=== PATIENT | male | born 1935 | race Two or more races ===

== ENCOUNTER 2016-07-26 12:58 | Inpatient (IN) | payer OTHER, BC ==
[~2016-07-26] VITALS: Ht 185.4 cm; Wt 74.4 kg
[~2016-07-26 12:58] MED LIST: ADULT LOW DOSE81 M1 PO; ALER-CAP25 M2; ASACOL400 MG PO; ASPIR 8181 M1 PO; ASPIRIN E.C.81 M1 PO; ASPIRIN81 M1; ASPIRIN81 M1 PO; ATARAX10 MG PO; ATIVAN0.25 MG; ATIVAN0.25 MG PO; ATIVAN0.5 MG; ATIVAN0.5 MG PO; ATORVASTATIN CA40 MG PO; ATROVENT 00.5 MG/2.5 IH; AZITHROMYCIN500 M1 PO; Advair 250/50 Diskus IH; Advair HFA 115/21 IH; Atarax PO; Ativan PO; BENTYL20 MG PO; BUSPAR15 MG; BUSPAR15 MG PO; BUSPAR5 M1 PO; BUSPIRONE HCL15 MG PO; Buspar PO; CARDIZEM CD,CA180 MG PO; CARDIZEM CD180 MG PO; CARTIA XT180 MG; CELEBREX200 MG PO; CELEXA PO; CELEXA10 MG PO; CENTRAL VITE F1 EACH PO; CENTRUM COMPLE1 EACH PO; CENTRUM SILV1 TABLE1 PO; CENTRUM SILV1 TABLET PO; CENTRUM SILVER1 EAC3 PO; CENTRUM SILVER1 EACH; CENTRUM SILVER1 EACH PO; CITALOPRAM HBR10 M1 PO; CLEARLAX510 GM PO; COLACE100 MG PO; COMPAZINE10 MG PO; COREG3.125 M1 PO; COUMADIN,JANTO7.5 MG PO; COUMADIN,JANTOVE1 MG; COUMADIN,JANTOVE5 MG PO; COUMADIN1 MG PO; COUMADIN2 MG PO; COUMADIN3 MG PO; COUMADIN5 MG PO; COUMADIN6 MG PO; CRESTOR40 MG; CRESTOR40 MG PO; Cardizem PO; Coumadin,Jantoven PO; Crestor PO; DESYREL 150 MG150 MG PO; DEXAMETHASONE4 MG PO; DEXAMETHASONE6 MG PO; DIGOX250 MCG PO; DIGOXIN250 MCG; DILAUDID2 MG PO; DOCUSATE SODIU100 MG PO; DONEPEZIL HCL10 MG PO; DULERA 100 MCG/13 GM IH; DURAGESIC25 MCG TD; Desyrel PO; Dexamethasone PO; EFFEXOR XR150 MG; EFFEXOR XR150 MG PO; EFFEXOR75 MG PO; Ecotrin PO; Effexor PO; Effexor XR PO; FIORICET 50-301 EACH PO; FIORICET,ESG1 TABLET PO; FLOMAX0.4 M1; FLOMAX0.4 M1 PO; FLOMAX0.4 MG PO; FOLIC ACID1 MG PO; FUROSEMIDE20 MG PO; FUROSEMIDE40 MG PO; Feosol PO; Flexeril PO; Flomax PO; Folvite PO; HYDROXYZINE HCL10 M1 PO; HYDROXYZINE HCL10 MG; HYDROXYZINE HCL10 MG PO; Habitrol,Nicoderm CQ TD; IRON PO; IRON18 MG PO; IRON325 M1 PO; IRON325 MG; IRON325 MG PO; KAPIDEX30 MG; KAPIDEX60 MG PO; LASIX40 MG PO; LIDOCAINE700 MG TD; LIDODERM 5% P1 PATCH TP; LISINOPRIL10 MG PO; LISINOPRIL5 MG PO; LOPRESSOR25 MG PO; LOPRESSOR50 MG PO; LORAZEPAM0.5 MG; LORAZEPAM0.5 MG PO; LOVENOX80 MG/0.8 SC; LYRICA150 MG PO; Lanoxin,Digitek PO; Lopressor PO; MATZIM LA PO; MATZIM LA180 MG PO; MELATONIN3 MG PO; MELOXICAM15 MG PO; MELOXICAM7.5 MG; METOPROLOL TART50 MG PO; METRONIDAZOLE500 MG PO; MIDRIN1 CAPSULE; MIDRIN1 CAPSULE PO; MORPHINE CON20 MG/M1 PO; MORPHINE SULFAT15 M3; MS Contin,Oramorph S PO; MSIR15 MG PO; MULTIVITAMIN1 EAC1 PO; Miralax, Glycolax PO; NAMENDA10 MG PO; OMEPRAZOLE20 M3; OMEPRAZOLE20 M3 PO; OMEPRAZOLE20 MG PO; OMNICEF300 MG PO; OXYCODONE-APAP1 EACH PO; OXYCONTIN10 MG; OXYCONTIN10 MG PO; OXYCONTIN15 MG PO; OXYCONTIN20 MG; OXYCONTIN20 MG PO; OxyCONTIN PO; PAIN RELIEF EX500 MG PO; PANTOPRAZOLE SO20 MG PO; PERCOCET 10/1 TABLET PO; POTASSIUM CHLO10 ME4 PO; PRADAXA150 MG; PRADAXA150 MG PO; PRILOSEC20 MG PO; PRINIVIL20 MG PO; PROAIR HFA8.5 GM IH; PROVENTIL,2.5 MG/3 M IH; Percocet 5/325,Endoc PO; Pradaxa PO; PriLOSEC PO; Protonix PO; RANITIDINE HCL150 M1 PO; Ranitidine HCl PO; SENOKOT S,PE1 TABLET PO; SERTRALINE HCL100 MG PO; SINEMET 10-1001 EACH PO; SPIRIVA1 INHALATI IH; SYMBICORT60 INHALA1 IH; SYMBICORT60 INHALAT IH; TAMSULOSIN HCL0.4 MG PO; TAZTIA XT180 M1 PO; TERBINAFINE HC250 M1 PO; TOPAMAX100 MG PO; TOPAMAX25 MG PO; TOPAMAX50 MG PO; TOPIRAGEN50 MG PO; TOPIRAMATE100 MG PO; TOPIRAMATE50 MG PO; TOPROL XL50 MG PO; TRAZODONE HCL150 MG PO; TRAZODONE HCL50 MG PO; TYLENOL WITH C1 EACH PO; Topamax PO; Tylenol Regular Stre PO; VANCOMYCIN1 GM/150 M IV; VENLAFAXINE HC150 M1; VENLAFAXINE HC150 M1 PO; VENLAFAXINE HCL50 MG PO; VICODIN 5-3001 EACH PO; VICODIN PO; VITAMIN D2000 UNIT PO; VITAMIN D35000 UNIT PO; VITAMIN D5000 UNIT PO; Vibramycin, Doryx PO; Vicodin,Lortab 5/500 PO; Vitamin D PO; WARFARIN SODIU7.5 MG PO; WARFARIN SODIUM1 MG PO; WARFARIN SODIUM5 MG PO; WARFARIN SODIUM6 MG PO; ZANAFLEX2 MG PO; ZOFRAN4 MG PO; Zithromax PO; Zofran IV; [UNRECOGNIZED DRUG - CODE]; celeXA PO
[2016-07-26 14:07] LABS: EOSINOPHIL (%) 0.1 % (0-5); HEMATOCRIT 40.7 % (38.0-50.0); IMMATURE GRANULOCYTE (%) 0.5 % (0.0-0.7); INSTRUMENT ABS NEUTROPHIL CT 5.4 K/uL; LYMPHOCYTE COUNT 2.5 K/uL (1.0-2.8); MCH 29.2 PG (29.0-34.0); MCHC 31.7 G/DL (30.0-36.0); MCV 92.1 FL (86-99); MEAN PLAT.VOLUME 10.2 uM^3 (9.0-12.4); MONOCYTE (%) 8.5 % (3-12); MONOCYTE COUNT 0.7 K/uL (0-0.8); NEUTROPHIL (%) 61.9 % (45-76); NEUTROPHIL COUNT 5.4 K/uL (1.8-6.4); PLATELET COUNT 208 K/uL (156-360); RBC DIS.WIDTH-CV 14.7 % (11.8-14.6); RBC DIS.WIDTH-SD 50.3 % (39-53); RED BLOOD COUNT 4.42 M/uL (4.00-5.50); WHITE BLOOD COUNT 8.7 K/uL (4.1-10.2)
[2016-07-26 14:17] LABS: CHLORIDE 107 mEq/L (99-109); INTER. NORMALIZED RATIO 2.2; POTASSIUM 4.3 mEq/L (3.7-5.4); SODIUM 139 mEq/L (136-147)
[2016-07-26 14:18] LABS: PROTHROMBIN TIME 23.4 (9.2-11.2)
[2016-07-26 14:19] LABS: GLUCOSE 93 mg/dL (70-99)
[2016-07-26 14:20] LABS: ANION GAP 8 MEQ/L (2-14)
[2016-07-26 14:22] LABS: GFR ESTIMATE (CALCULATED) > 59 mL/min/
[2016-07-26 14:23] LABS: UREA NITROGEN (BUN) 14 mg/dL (9-23)
[2016-07-26] MEDS ORDERED: PULMICORT FLE180 MCG IH (17:39)
[2016-07-26] MEDS ORDERED: BUTALB-ACETAMI1 EAC2 PO (17:41)
[2016-07-26] MEDS ORDERED: CYMBALTA30 MG PO (17:42)
[2016-07-26] MEDS ORDERED: DURAGESIC12 MCG TD (17:44)
[2016-07-26] MEDS ORDERED: LORAZEPAM0.5 MG PO (17:45)
[2016-07-26] MEDS ORDERED: MELATONIN PO (17:48)
[2016-07-26] MEDS ORDERED: PERCOCET 10/1 TABLET PO (17:52)
[2016-07-26] MEDS ORDERED: SEROQUEL12.5 MG PO (17:54)
[2016-07-26] MEDS ORDERED: TOPAMAX100 MG PO (17:57)
[2016-07-26] MEDS ORDERED: COUMADIN4 MG PO (17:58)
[2016-07-26] MEDS ORDERED: COUMADIN1 MG PO (17:59)
[2016-07-26] MEDS ORDERED: VITRON-C TABLE1 EACH PO (17:59)
[2016-07-26] MEDS ORDERED: STOOL SOFTENER100 MG PO (18:00)
[2016-07-26] MEDS ORDERED: DILAUDID8 MG PO (18:01)
[2016-07-26] MEDS ORDERED: DAILY VITE1 EAC1 PO (18:01)
[2016-07-26] MEDS ORDERED: VITAMIN D35000 UNIT PO (18:01)
[2016-07-26] MEDS ORDERED: KENALOG,ARISTOC80 GM TP (18:03)
[2016-07-26 20:37] VITALS: BP 138/82
[2016-07-26 23:07] LABS: METH RESISTANT S AUREUS PCR NEGATIVE (NEGATIVE)
[2016-07-26 23:08] LABS: PROBE CHECK PASS; SPECIMEN PROCESSING CONTROL PASS
[2016-07-27 00:03] VITALS: BP 125/63
[2016-07-27 07:36] LABS: INTER. NORMALIZED RATIO 2.1; PROTHROMBIN TIME 22.3 (9.2-11.2)
[2016-07-27 09:13] VITALS: BP 145/70
[2016-07-27 12:00] VITALS: BP 139/65
[2016-07-27 16:00] VITALS: BP 120/64
[2016-07-27 19:15] VITALS: BP 132/77
[2016-07-27 23:25] VITALS: BP 138/69
[2016-07-28 04:02] VITALS: BP 148/77
[2016-07-28 07:43] VITALS: BP 154/82
[2016-07-28 09:32] LABS: HEMATOCRIT 39.7 % (38.0-50.0); MCH 28.9 PG (29.0-34.0); MCHC 31.5 G/DL (30.0-36.0); MCV 91.9 FL (86-99); MEAN PLAT.VOLUME 9.8 uM^3 (9.0-12.4); PLATELET COUNT 165 K/uL (156-360); RBC DIS.WIDTH-CV 14.7 % (11.8-14.6); RBC DIS.WIDTH-SD 50.4 % (39-53); RED BLOOD COUNT 4.32 M/uL (4.00-5.50)
[2016-07-28 09:58] LABS: ANION GAP 8 MEQ/L (2-14); CHLORIDE 104 MEQ/L (99-109); GFR ESTIMATE (CALCULATED) > 59 mL/min/; GLUCOSE 113 mg/dL (70-99); POTASSIUM 4.1 MEQ/L (3.7-5.4); SAMPLE HEMOLYSIS CHECK 0; SAMPLE ICTERIC CHECK 0; SAMPLE LIPEMIA CHECK 0; SODIUM 137 MEQ/L (136-147); UREA NITROGEN (BUN) 15 mg/dL (9-23)
[2016-07-28 11:04] LABS: INTER. NORMALIZED RATIO 1.6; PROTHROMBIN TIME 16.8 (9.2-11.2)
[2016-07-28 12:11] VITALS: BP 163/78
[2016-07-28 12:16] LABS: ADD MIUA? YES; BILIRUBIN NEGATIVE; BLOOD SMALL; COLOR YELLOW ((YELLOW)); GLUCOSE (STRIP) NEGATIVE; KETONES NEGATIVE; LEUKOCYTES NEGATIVE; NITRITE NEGATIVE; PROTEIN (STRIP) NEGATIVE; SPECIFIC GRAVITY 1.012 (1.000-1.030); UROBILINOGEN 0.2 MG/DL (0.2-1.0)
[2016-07-28 12:40] LABS: BACTERIA 1+ /HPF; EPITHELIAL CELLS NONE SEEN /HPF; MUCUS NONE SEEN /LPF; RED BLOOD CELLS 0-5 /HPF (0-5); UCUL ADDED? NO; WHITE BLOOD CELLS NONE SEEN /HPF (0-5)
[2016-07-28 15:04] VITALS: BP 143/78
[2016-07-28 20:00] VITALS: BP 143/84
[2016-07-28 23:20] VITALS: BP 147/65
[2016-07-29 04:35] VITALS: BP 132/65
[2016-07-29 05:49] LABS: INTER. NORMALIZED RATIO 1.3
[2016-07-29 08:10] VITALS: BP 140/78
[2016-07-29 12:25] VITALS: BP 136/63
[2016-07-29 16:24] VITALS: BP 127/66
[2016-07-29 23:46] VITALS: BP 126/70
[2016-07-30 03:34] VITALS: BP 137/70
[2016-07-30 05:19] LABS: INTER. NORMALIZED RATIO 1.2; PROTHROMBIN TIME 11.9 (9.2-11.2)
[2016-07-30 07:33] VITALS: BP 127/70
[2016-07-30] MEDS ORDERED: NICOTINE PATCH1 EAC2 TD (09:53)
[2016-07-30 11:36] VITALS: BP 137/68
[2016-07-30 15:38] VITALS: BP 119/61
[2016-07-30 20:04] VITALS: BP 151/73
[2016-07-31 02:40] VITALS: BP 132/78
[2016-07-31 05:40] LABS: INTER. NORMALIZED RATIO 1.1; PROTHROMBIN TIME 11.5 (9.2-11.2)
[2016-07-31 07:54] VITALS: BP 125/74
[2016-07-31 11:56] VITALS: BP 112/57
[2016-07-31] MEDS ORDERED: DURAGESIC25 MCG TD (13:51)
[2016-07-31] MEDS ORDERED: DILAUDID8 MG PO (13:51)
[2016-07-31] MEDS ORDERED: LORAZEPAM0.5 MG PO (13:51)
[2016-07-31] MEDS ORDERED: PERCOCET 10/1 TABLET PO (13:51)
[2016-07-31] MEDS ORDERED: BUTALB-ACETAMI1 EAC2 PO (15:06)
== END 2016-07-31 16:09 | DRG 556 ==
LOC: EME → EDBD 12:58 → 5WEST 18:46 → EDOF 18:46 → 5WEST 20:12 → 3EAST 07-27 11:10
PROVIDERS: Emergency Medicine; Hospitalist; Physician Assistant; Physician Assistant Medical
DX: M25.551 Pain in right hip (principal); R26.2 Difficulty in walking, not elsewhere classified; I25.82 Chronic total occlusion of coronary artery; F11.20 Opioid dependence, uncomplicated; I48.0 Paroxysmal atrial fibrillation; J44.9 Chronic obstructive pulmonary disease, unspecified; G30.9 Alzheimer's disease, unspecified; F02.80 Dementia in other diseases classified elsewhere, unspecified severity, without behavioral disturbance, psychotic disturbance, mood disturbance, and anxiety; I25.10 Atherosclerotic heart disease of native coronary artery without angina pectoris; I10 Essential (primary) hypertension; E78.5 Hyperlipidemia, unspecified; K21.9 Gastro-esophageal reflux disease without esophagitis; G47.33 Obstructive sleep apnea (adult) (pediatric); F41.9 Anxiety disorder, unspecified; G89.29 Other chronic pain; Z51.5 Encounter for palliative care; Z66 Do not resuscitate; F17.210 Nicotine dependence, cigarettes, uncomplicated; Z96.643 Presence of artificial hip joint, bilateral; Z91.81 History of falling; Z91.19 Patient's noncompliance with other medical treatment and regimen; Z79.01 Long term (current) use of anticoagulants; Z95.1 Presence of aortocoronary bypass graft; Z85.46 Personal history of malignant neoplasm of prostate; Z85.828 Personal history of other malignant neoplasm of skin; Z85.118 Personal history of other malignant neoplasm of bronchus and lung; Z88.5 Allergy status to narcotic agent; Z86.14 Personal history of Methicillin resistant Staphylococcus aureus infection
CPT/HCPCS: 70450; 71020; 72131; 72192; 73502; 73552; 73560; 80048; 81003; 85025; 85027; 85610; 87641; 93005; 94640; 94640 76; 94799; 97530 GO; 97530 GP; 99281; 99285; G0378; G8978 GP CJ; G8979 GP CI; J2270

== ENCOUNTER 2016-10-17 12:09 | Observation (INO) | payer OTHER, BC ==
[~2016-10-17] VITALS: Ht 182.9 cm; Wt 72.0 kg
[~2016-10-17 12:09] MED LIST changes: +BUTALB-ACETAMI1 EAC2 PO; +COUMADIN4 MG PO; +CYMBALTA30 MG PO; +DAILY VITE1 EAC1 PO; +DILAUDID8 MG PO; +DURAGESIC12 MCG TD; +KENALOG,ARISTOC80 GM TP; +MELATONIN PO; +NICOTINE PATCH1 EAC2 TD; +PULMICORT FLE180 MCG IH; +SEROQUEL12.5 MG PO; +STOOL SOFTENER100 MG PO; +VITRON-C TABLE1 EACH PO
[2016-10-17 13:11] LABS: HEMATOCRIT 38.6 % (38.0-50.0); MCHC 31.9 G/DL (30.0-36.0); MCV 94.1 FL (86-99); MEAN PLAT.VOLUME 10.3 uM^3 (9.0-12.4); PLATELET COUNT 194 K/uL (156-360); RBC DIS.WIDTH-SD 48.6 % (39-53); WHITE BLOOD COUNT 8.4 K/uL (4.1-10.2)
[2016-10-17 13:20] LABS: CHLORIDE 108 mEq/L (99-109); POTASSIUM 4.2 mEq/L (3.7-5.4); SODIUM 141 mEq/L (136-147)
[2016-10-17 13:22] LABS: GLUCOSE 84 mg/dL (70-99)
[2016-10-17 13:23] LABS: ANION GAP 10 MEQ/L (2-14)
[2016-10-17 13:24] LABS: TOTAL BILIRUBIN 0.3 mg/dL (0.0-1.0)
[2016-10-17 13:26] LABS: ALKALINE PHOSPHATASE 87 IU/L (3-129); GFR ESTIMATE (CALCULATED) > 59 mL/min/
[2016-10-17 13:27] LABS: UREA NITROGEN (BUN) 13 mg/dL (9-23)
[2016-10-17 17:15] LABS: INTER. NORMALIZED RATIO 1.1; PROTHROMBIN TIME 11.6 SEC (10.2-12.9)
[2016-10-17 17:32] LABS: TROP-I INTERPRETATION NEGATIVE; TROPONIN-I < 0.01 ng/mL (0.0-0.30)
[2016-10-17 18:54] VITALS: BP 130/87
[2016-10-17 21:53] LABS: TROP-I INTERPRETATION NEGATIVE; TROPONIN-I 0.03 ng/mL (0.0-0.30)
[2016-10-17 22:37] VITALS: BP 160/60
[2016-10-17 22:57] LABS: ADD MIUA? NO; BILIRUBIN NEGATIVE; BLOOD NEGATIVE; COLOR YELLOW ((YELLOW)); GLUCOSE (STRIP) NEGATIVE; KETONES NEGATIVE; LEUKOCYTES NEGATIVE; NITRITE NEGATIVE; PROTEIN (STRIP) NEGATIVE; SPECIFIC GRAVITY 1.045 (1.000-1.030); UCUL ADDED? NO; UROBILINOGEN 0.2 MG/DL (0.2-1.0)
[2016-10-17 23:28] LABS: TROP-I INTERPRETATION NEGATIVE; TROPONIN-I 0.01 ng/mL (0.0-0.30)
[2016-10-17 23:40] VITALS: BP 151/63
[2016-10-18 03:25] VITALS: BP 157/89
[2016-10-18 07:10] LABS: INTER. NORMALIZED RATIO 1.1; PROTHROMBIN TIME 11.8 SEC (10.2-12.9)
[2016-10-18 07:25] LABS: HDL CHOLESTEROL 62 MG/DL (Desirable>=40); LDL CHOLESTEROL 65 mg/dL (Desirable<100); NON-HDL CHOLESTEROL 88 mg/dL (Desirable<160); TOTAL CHOLESTEROL 150 mg/dL (Desirable<200); TRIGLYCERIDES 115 MG/DL (Normal: <150)
[2016-10-18 07:26] LABS: TROP-I INTERPRETATION NEGATIVE; TROPONIN-I 0.03 ng/mL (0.0-0.30)
[2016-10-18 07:35] VITALS: BP 190/82
[2016-10-18 11:06] VITALS: BP 174/78
[2016-10-18] MEDS ORDERED: AUGMENTIN875 MG PO (13:28)
== END 2016-10-18 14:40 | disposition home or self-care (01) ==
LOC: EME 12:09 → 5SOUTH 15:27 → EDOF 15:27 → 5SOUTH 18:42
PROVIDERS: Emergency Medicine; Hospitalist; Internal Medicine
DX: G45.9 Transient cerebral ischemic attack, unspecified (principal); R47.81 Slurred speech; J18.9 Pneumonia, unspecified organism; F17.200 Nicotine dependence, unspecified, uncomplicated; J44.9 Chronic obstructive pulmonary disease, unspecified; E78.5 Hyperlipidemia, unspecified; I10 Essential (primary) hypertension; G43.909 Migraine, unspecified, not intractable, without status migrainosus; K21.9 Gastro-esophageal reflux disease without esophagitis; Z95.1 Presence of aortocoronary bypass graft; F32.9 Major depressive disorder, single episode, unspecified; I25.10 Atherosclerotic heart disease of native coronary artery without angina pectoris; I48.91 Unspecified atrial fibrillation; I73.9 Peripheral vascular disease, unspecified; G47.33 Obstructive sleep apnea (adult) (pediatric); Z96.643 Presence of artificial hip joint, bilateral
CPT/HCPCS: 70450; 71010; 71275; 80053; 80061; 81003; 84484; 85027; 85610; 87040; 93005; 94799; 99281; 99285; G0378; J0456; J0696; J7050

== ENCOUNTER 2016-10-23 18:34 | Inpatient (IN) | payer OTHER, BC ==
[~2016-10-23] VITALS: Ht 182.9 cm; Wt 75.9 kg
[~2016-10-23 18:34] MED LIST changes: +AUGMENTIN875 MG PO
[2016-10-23 20:16] LABS: BASOPHIL COUNT 0.1 K/uL (0-0.1); EOSINOPHIL (%) 0.4 % (0-5); HEMATOCRIT 37.9 % (38.0-50.0); IMMATURE GRANULOCYTE (%) 0.5 % (0.0-0.7); IMMATURE GRANULOCYTE COUNT 0.1 K/uL; LYMPHOCYTE COUNT 3.8 K/uL (1.0-2.8); MCH 29.9 PG (29.0-34.0); MCHC 31.7 G/DL (30.0-36.0); MCV 94.3 FL (86-99); MEAN PLAT.VOLUME 10.5 uM^3 (9.0-12.4); MONOCYTE (%) 6.8 % (3-12); MONOCYTE COUNT 0.7 K/uL (0-0.8); NEUTROPHIL (%) 56.2 % (45-76); PLATELET COUNT 225 K/uL (156-360); RBC DIS.WIDTH-SD 48.8 % (39-53); RED BLOOD COUNT 4.02 M/uL (4.00-5.50); WHITE BLOOD COUNT 10.7 K/uL (4.1-10.2)
[2016-10-23 20:26] LABS: CHLORIDE 103 mEq/L (99-109); SODIUM 138 mEq/L (136-147)
[2016-10-23 20:28] LABS: GLUCOSE 83 mg/dL (70-99)
[2016-10-23 20:29] LABS: ANION GAP 11 MEQ/L (2-14)
[2016-10-23 20:32] LABS: ALKALINE PHOSPHATASE 106 IU/L (3-129); GFR ESTIMATE (CALCULATED) > 59 mL/min/; TOTAL BILIRUBIN 0.5 mg/dL (0.0-1.0)
[2016-10-23 20:33] LABS: UREA NITROGEN (BUN) 17 mg/dL (9-23)
[2016-10-23 20:35] LABS: CREATINE KINASE 468 IU/L (1-294); TOTAL CK 468 IU/L (1-294)
[2016-10-23 20:41] LABS: CK-MB 8.5 ng/mL (0.0-4.9)
[2016-10-23 20:42] LABS: TROP-I INTERPRETATION NEGATIVE; TROPONIN-I 0.01 ng/mL (0.0-0.30)
[2016-10-23 20:54] LABS: ADD MIUA? NO; BILIRUBIN NEGATIVE; BLOOD NEGATIVE; COLOR YELLOW ((YELLOW)); GLUCOSE (STRIP) NEGATIVE; KETONES NEGATIVE; LEUKOCYTES NEGATIVE; NITRITE NEGATIVE; PROTEIN (STRIP) NEGATIVE; SPECIFIC GRAVITY 1.016 (1.000-1.030); UCUL ADDED? NO; UROBILINOGEN 0.2 MG/DL (0.2-1.0)
[2016-10-23] MEDS ORDERED: SINEMET 25-1001 EACH PO (23:21)
[2016-10-23] MEDS ORDERED: DURAGESIC12 MCG TD (23:24)
[2016-10-23] MEDS ORDERED: ATIVAN0.5 MG PO (23:25)
[2016-10-23] MEDS ORDERED: MELATONIN10 M1 PO (23:30)
[2016-10-23] MEDS ORDERED: MELATONIN1 MG PO (23:33)
[2016-10-23] MEDS ORDERED: ECONAZOLE NITRA15 GM TP (23:36)
[2016-10-23] MEDS ORDERED: GABAPENTIN100 MG PO (23:36)
[2016-10-23] MEDS ORDERED: LO-DOSE ASPIRIN81 M2 PO (23:37)
[2016-10-23] MEDS ORDERED: LOPRESSOR25 MG PO (23:37)
[2016-10-23] MEDS ORDERED: PROAIR HFA8.5 GM IH (23:37)
[2016-10-24] VITALS (7 sets, daily range): BP systolic 113–159; BP diastolic 50–72
[2016-10-25 03:47] VITALS: BP 114/60
[2016-10-25 06:18] LABS: ANION GAP 3 MEQ/L (2-14); CHLORIDE 109 MEQ/L (99-109); GFR ESTIMATE (CALCULATED) > 59 mL/min/; GLUCOSE 82 mg/dL (70-99); POTASSIUM 4.1 MEQ/L (3.7-5.4); SAMPLE HEMOLYSIS CHECK 0; SAMPLE ICTERIC CHECK 0; SAMPLE LIPEMIA CHECK 0; SODIUM 139 MEQ/L (136-147); UREA NITROGEN (BUN) 13 mg/dL (9-23)
[2016-10-25 06:29] LABS: HEMATOCRIT 31.3 % (38.0-50.0); MCH 29.7 PG (29.0-34.0); MCHC 31.6 G/DL (30.0-36.0); MEAN PLAT.VOLUME 10.3 uM^3 (9.0-12.4); PLATELET COUNT 162 K/uL (156-360); RBC DIS.WIDTH-CV 13.8 % (11.8-14.6); RED BLOOD COUNT 3.33 M/uL (4.00-5.50); WHITE BLOOD COUNT 6.8 K/uL (4.1-10.2)
[2016-10-25 07:25] LABS: BASOPHIL COUNT 0.1 K/uL (0-0.1); EOSINOPHIL (%) 0.4 % (0-5); HEMATOLOGY COMMENT 1 SMEAR COMPATIBLE; IMMATURE GRANULOCYTE (%) 0.4 % (0.0-0.7); INSTRUMENT ABS NEUTROPHIL CT 3.2 K/uL; LYMPHOCYTE COUNT 2.7 K/uL (1.0-2.8); MONOCYTE (%) 12.4 % (3-12); MONOCYTE COUNT 0.9 K/uL (0-0.8); NEUTROPHIL (%) 46.9 % (45-76); NEUTROPHIL COUNT 3.2 K/uL (1.8-6.4)
[2016-10-25 07:49] VITALS: BP 149/64
[2016-10-25 11:07] VITALS: BP 144/78
[2016-10-25 15:26] VITALS: BP 148/74
[2016-10-25 19:39] VITALS: BP 172/77
[2016-10-25 23:54] VITALS: BP 135/62
[2016-10-26 04:23] VITALS: BP 126/60
[2016-10-26 07:27] VITALS: BP 146/72
[2016-10-26 11:08] VITALS: BP 130/59
[2016-10-26 15:13] VITALS: BP 132/63
[2016-10-26 19:24] VITALS: BP 134/51
[2016-10-27 00:02] VITALS: BP 172/76
[2016-10-27 04:43] VITALS: BP 144/81
[2016-10-27 06:34] LABS: HEMATOCRIT 34.1 % (38.0-50.0); MCH 29.8 PG (29.0-34.0); MCHC 31.7 G/DL (30.0-36.0); MCV 93.9 FL (86-99); MEAN PLAT.VOLUME 10.5 uM^3 (9.0-12.4); PLATELET COUNT 182 K/uL (156-360); RBC DIS.WIDTH-CV 13.6 % (11.8-14.6); RBC DIS.WIDTH-SD 46.8 % (39-53); RED BLOOD COUNT 3.63 M/uL (4.00-5.50); WHITE BLOOD COUNT 5.3 K/uL (4.1-10.2)
[2016-10-27 07:05] LABS: ANION GAP 7 MEQ/L (2-14); CHLORIDE 107 MEQ/L (99-109); GFR ESTIMATE (CALCULATED) > 59 mL/min/; GLUCOSE 94 mg/dL (70-99); POTASSIUM 4.5 MEQ/L (3.7-5.4); SAMPLE HEMOLYSIS CHECK 0; SAMPLE ICTERIC CHECK 0; SAMPLE LIPEMIA CHECK 0; SODIUM 140 MEQ/L (136-147); UREA NITROGEN (BUN) 10 mg/dL (9-23)
[2016-10-27 08:00] VITALS: BP 135/71
[2016-10-27] MEDS ORDERED: AUGMENTIN875 MG PO (11:32)
[2016-10-27 12:00] VITALS: BP 114/51
[2016-10-27] MEDS ORDERED: NORVASC5 MG PO (14:28)
== END 2016-10-27 14:41 | DRG 190 ==
LOC: EME 18:34 → EDOF 23:03 → 5SOUTH 23:03 → ENRESERV 23:11 → 5SOUTH 10-24 00:53
PROVIDERS: Emergency Medicine; Hospitalist; Internal Medicine
DX: J44.0 Chronic obstructive pulmonary disease with (acute) lower respiratory infection (principal); J15.4 Pneumonia due to other streptococci; L03.115 Cellulitis of right lower limb; I48.91 Unspecified atrial fibrillation; Z99.81 Dependence on supplemental oxygen; G30.1 Alzheimer's disease with late onset; L03.116 Cellulitis of left lower limb; F02.80 Dementia in other diseases classified elsewhere, unspecified severity, without behavioral disturbance, psychotic disturbance, mood disturbance, and anxiety; F17.200 Nicotine dependence, unspecified, uncomplicated; E78.5 Hyperlipidemia, unspecified; G47.33 Obstructive sleep apnea (adult) (pediatric); I10 Essential (primary) hypertension; I25.10 Atherosclerotic heart disease of native coronary artery without angina pectoris; J98.11 Atelectasis; K21.9 Gastro-esophageal reflux disease without esophagitis; Z87.442 Personal history of urinary calculi; R29.6 Repeated falls; Y95 Nosocomial condition; Z79.82 Long term (current) use of aspirin; Z79.899 Other long term (current) drug therapy; Z95.1 Presence of aortocoronary bypass graft; Z96.643 Presence of artificial hip joint, bilateral; R41.82 Altered mental status, unspecified; E86.0 Dehydration; I73.9 Peripheral vascular disease, unspecified
CPT/HCPCS: 70450; 71010; 71020; 74230; 80048; 80053; 80202; 81003; 82550; 82553; 83880; 84484; 85025; 85027; 87040; 92610 GN; 92611 GN; 93005; 94640; 94640 76; 94799; 97530 GO; 99281; 99285; J0692; J1644; J2543; J3370; J7030; J7050

== ENCOUNTER 2016-12-22 23:11 | Emergency (ER) | payer OTHER, BC ==
[~2016-12-22] VITALS: Ht 182.9 cm; Wt 72.9 kg
[~2016-12-22 23:11] MED LIST changes: +ECONAZOLE NITRA15 GM TP; +GABAPENTIN100 MG PO; +LO-DOSE ASPIRIN81 M2 PO; +MELATONIN1 MG PO; +MELATONIN10 M1 PO; +NORVASC5 MG PO; +SINEMET 25-1001 EACH PO
[2016-12-23 00:34] LABS: CHLORIDE 106 mEq/L (99-109); POTASSIUM 3.7 mEq/L (3.7-5.4); SODIUM 139 mEq/L (136-147)
[2016-12-23 00:35] LABS: HEMATOCRIT 33.6 % (38.0-50.0); MCHC 32.1 G/DL (30.0-36.0); MCV 90.3 FL (86-99); MEAN PLAT.VOLUME 10.3 uM^3 (9.0-12.4); PLATELET COUNT 249 K/uL (156-360); RBC DIS.WIDTH-CV 13.6 % (11.8-14.6); RBC DIS.WIDTH-SD 45.1 % (39-53); RED BLOOD COUNT 3.72 M/uL (4.00-5.50); WHITE BLOOD COUNT 10.8 K/uL (4.1-10.2)
[2016-12-23 00:36] LABS: GLUCOSE 114 mg/dL (70-99)
[2016-12-23 00:38] LABS: ANION GAP 11 MEQ/L (2-14)
[2016-12-23 00:40] LABS: GFR ESTIMATE (CALCULATED) > 59 mL/min/
[2016-12-23 00:41] LABS: UREA NITROGEN (BUN) 15 mg/dL (9-23)
[2016-12-23 00:46] LABS: TROP-I INTERPRETATION NEGATIVE; TROPONIN-I 0.16 ng/mL (0.0-0.30)
[2016-12-23 01:32] LABS: ADD MIUA? YES; BILIRUBIN NEGATIVE; BLOOD NEGATIVE; COLOR AMBER ((YELLOW)); GLUCOSE (STRIP) NEGATIVE; KETONES 5; LEUKOCYTES SMALL; NITRITE NEGATIVE; PROTEIN (STRIP) NEGATIVE; SPECIFIC GRAVITY 1.025 (1.000-1.030)
[2016-12-23 01:36] LABS: BACTERIA NONE SEEN /HPF; EPITHELIAL CELLS RARE /HPF; MUCUS 1+ /LPF; RED BLOOD CELLS 0-5 /HPF (0-5); UCUL ADDED? YES; WHITE BLOOD CELLS 40-50 /HPF (0-5); WHITE BLOOD CELLS CLUMP RARE /HPF (0-5)
[2016-12-23] MEDS ORDERED: CEFPODOXIME PR100 MG PO (01:52)
[2016-12-23 03:48] VITALS: BP 102/84
== END 2016-12-23 04:04 ==
LOC: EME 23:11
PROVIDERS: Emergency Medicine
DX: N39.0 Urinary tract infection, site not specified (principal); R07.81 Pleurodynia; W18.30XA Fall on same level, unspecified, initial encounter; I48.91 Unspecified atrial fibrillation; F03.90 Unspecified dementia, unspecified severity, without behavioral disturbance, psychotic disturbance, mood disturbance, and anxiety; I45.10 Unspecified right bundle-branch block; I10 Essential (primary) hypertension; E78.5 Hyperlipidemia, unspecified; J44.9 Chronic obstructive pulmonary disease, unspecified; Z95.1 Presence of aortocoronary bypass graft; Z85.46 Personal history of malignant neoplasm of prostate; Z85.828 Personal history of other malignant neoplasm of skin; Z85.118 Personal history of other malignant neoplasm of bronchus and lung; Z79.82 Long term (current) use of aspirin; F17.200 Nicotine dependence, unspecified, uncomplicated
CPT/HCPCS: 70450; 71020; 72125; 80048; 81003; 83605; 84484; 85027; 87077; 87086; 87186; 93005; 99281; 99285; J0696; J7030; J7050

== ENCOUNTER 2017-01-06 23:03 | Inpatient (IN) | payer OTHER, BC ==
[~2017-01-06] VITALS: Ht 175.3 cm; Wt 69.4 kg
[~2017-01-06 23:03] MED LIST changes: +CEFPODOXIME PR100 MG PO
[2017-01-06 23:54] LABS: HEMATOCRIT 36.9 % (38.0-50.0); MCH 28.7 PG (29.0-34.0); MCHC 31.7 G/DL (30.0-36.0); MCV 90.4 FL (86-99); MEAN PLAT.VOLUME 10.9 uM^3 (9.0-12.4); PLATELET COUNT 196 K/uL (156-360); RBC DIS.WIDTH-CV 14.8 % (11.8-14.6); RBC DIS.WIDTH-SD 49.3 % (39-53); RED BLOOD COUNT 4.08 M/uL (4.00-5.50); WHITE BLOOD COUNT 8.7 K/uL (4.1-10.2)
[2017-01-07 00:11] LABS: CHLORIDE 107 mEq/L (99-109); POTASSIUM 3.8 mEq/L (3.7-5.4); SODIUM 141 mEq/L (136-147)
[2017-01-07 00:13] LABS: GLUCOSE 110 mg/dL (70-99)
[2017-01-07 00:14] LABS: ANION GAP 10 MEQ/L (2-14)
[2017-01-07 00:17] LABS: GFR ESTIMATE (CALCULATED) > 59 mL/min/
[2017-01-07 00:18] LABS: UREA NITROGEN (BUN) 9 mg/dL (9-23)
[2017-01-07 00:20] LABS: TROP-I INTERPRETATION NEGATIVE; TROPONIN-I 0.03 ng/mL (0.0-0.30)
[2017-01-07 00:37] LABS: INTER. NORMALIZED RATIO 1.2; PROTHROMBIN TIME 12.7 SEC (10.2-12.9)
[2017-01-07 00:39] LABS: PTT 33.9 SEC (25-37)
[2017-01-07 06:38] VITALS: BP 169/108
[2017-01-07 08:20] VITALS: BP 148/89
[2017-01-07 11:21] VITALS: BP 121/78
[2017-01-07] MEDS ORDERED: MILK OF MAGN PO (13:21)
[2017-01-07] MEDS ORDERED: DULCOLAX10 MG PR (13:22)
[2017-01-07] MEDS ORDERED: FLEET MINERAL133 ML PR (13:22)
[2017-01-07] MEDS ORDERED: DUONEB 2.5-0.5 M3 ML AEROSOL (13:27)
[2017-01-07] MEDS ORDERED: TYLENOL REGULA325 MG PO (13:28)
[2017-01-07] MEDS ORDERED: PERCOCET 10/1 TABLET PO (13:29)
[2017-01-07] MEDS ORDERED: NICODERM CQ1 EACH TD (13:30)
[2017-01-07 19:59] VITALS: BP 154/89
[2017-01-07 23:02] LABS: METH RESISTANT S AUREUS PCR POSITIVE (NEGATIVE)
[2017-01-07 23:14] LABS: PROBE CHECK PASS
[2017-01-07 23:52] VITALS: BP 120/85
[2017-01-08 07:53] VITALS: BP 130/90
[2017-01-08 16:08] VITALS: BP 104/63
[2017-01-09 00:34] VITALS: BP 120/68
[2017-01-09 06:38] LABS: HEMATOCRIT 37.7 % (38.0-50.0); MCH 28.8 PG (29.0-34.0); MCV 93.5 FL (86-99); RED BLOOD COUNT 4.03 M/uL (4.00-5.50); WHITE BLOOD COUNT 6.7 K/uL (4.1-10.2)
[2017-01-09 06:39] LABS: BASOPHIL COUNT 0.1 K/uL (0-0.1); EOSINOPHIL (%) 0.2 % (0-5); IMMATURE GRANULOCYTE (%) 0.3 % (0.0-0.7); INSTRUMENT ABS NEUTROPHIL CT 2.8 K/uL; LYMPHOCYTE COUNT 2.8 K/uL (1.0-2.8); MCHC 30.8 G/DL (30.0-36.0); MEAN PLAT.VOLUME 11.3 uM^3 (9.0-12.4); MONOCYTE COUNT 0.9 K/uL (0-0.8); NEUTROPHIL COUNT 2.8 K/uL (1.8-6.4); PLATELET COUNT 142 K/uL (156-360); RBC DIS.WIDTH-CV 15.2 % (11.8-14.6); RBC DIS.WIDTH-SD 52.4 % (39-53)
[2017-01-09 07:06] LABS: ANION GAP 8 MEQ/L (2-14); CHLORIDE 109 MEQ/L (99-109); GFR ESTIMATE (CALCULATED) > 59 mL/min/; GLUCOSE 96 mg/dL (70-99); POTASSIUM 4.2 MEQ/L (3.7-5.4); SAMPLE HEMOLYSIS CHECK 0; SAMPLE ICTERIC CHECK 0; SAMPLE LIPEMIA CHECK 0; SODIUM 141 MEQ/L (136-147); UREA NITROGEN (BUN) 11 mg/dL (9-23)
[2017-01-09 07:47] VITALS: BP 119/75
[2017-01-09 15:25] VITALS: BP 154/71
[2017-01-09 23:35] VITALS: BP 100/55
[2017-01-10 06:47] LABS: EOSINOPHIL (%) 0.1 % (0-5); HEMATOCRIT 37.8 % (38.0-50.0); IMMATURE GRANULOCYTE (%) 0.1 % (0.0-0.7); INSTRUMENT ABS NEUTROPHIL CT 3.7 K/uL; LYMPHOCYTE COUNT 2.7 K/uL (1.0-2.8); MCH 29.6 PG (29.0-34.0); MCV 92.4 FL (86-99); MONOCYTE (%) 9.3 % (3-12); MONOCYTE COUNT 0.7 K/uL (0-0.8); NEUTROPHIL (%) 51.6 % (45-76); NEUTROPHIL COUNT 3.7 K/uL (1.8-6.4); PLATELET COUNT 150 K/uL (156-360); RBC DIS.WIDTH-CV 15.1 % (11.8-14.6); RBC DIS.WIDTH-SD 51.2 % (39-53); RED BLOOD COUNT 4.09 M/uL (4.00-5.50); WHITE BLOOD COUNT 7.1 K/uL (4.1-10.2)
[2017-01-10 07:18] LABS: ANION GAP 9 MEQ/L (2-14); CHLORIDE 108 MEQ/L (99-109); GFR ESTIMATE (CALCULATED) > 59 mL/min/; GLUCOSE 95 mg/dL (70-99); SAMPLE HEMOLYSIS CHECK 0; SAMPLE ICTERIC CHECK 0; SAMPLE LIPEMIA CHECK 0; SODIUM 141 MEQ/L (136-147); UREA NITROGEN (BUN) 10 mg/dL (9-23)
[2017-01-10 07:45] VITALS: BP 122/86
[2017-01-11 06:06] LABS: HEMATOCRIT 36.3 % (38.0-50.0); MCH 28.9 PG (29.0-34.0); MCHC 31.7 G/DL (30.0-36.0); MCV 91.2 FL (86-99); MEAN PLAT.VOLUME 11.4 uM^3 (9.0-12.4); PLATELET COUNT 140 K/uL (156-360); RBC DIS.WIDTH-SD 50.6 % (39-53); RED BLOOD COUNT 3.98 M/uL (4.00-5.50)
[2017-01-11 06:30] LABS: ANION GAP 8 MEQ/L (2-14); CHLORIDE 108 MEQ/L (99-109); GFR ESTIMATE (CALCULATED) > 59 mL/min/; GLUCOSE 108 mg/dL (70-99); POTASSIUM 4.3 MEQ/L (3.7-5.4); SAMPLE HEMOLYSIS CHECK 0; SAMPLE ICTERIC CHECK 0; SAMPLE LIPEMIA CHECK 0; SODIUM 140 MEQ/L (136-147); UREA NITROGEN (BUN) 12 mg/dL (9-23)
[2017-01-11 06:38] LABS: EOSINOPHIL (%) 0 % (0-5); IMMATURE GRANULOCYTE (%) 0.4 % (0.0-0.7); INSTRUMENT ABS NEUTROPHIL CT 3.3 K/uL; LYMPHOCYTE COUNT 1.4 K/uL (1.0-2.8); MONOCYTE (%) 5.3 % (3-12); MONOCYTE COUNT 0.3 K/uL (0-0.8); NEUTROPHIL (%) 65.8 % (45-76); NEUTROPHIL COUNT 3.3 K/uL (1.8-6.4)
[2017-01-11 08:16] VITALS: BP 108/62
[2017-01-11 16:03] VITALS: BP 108/76
[2017-01-11 16:56] LABS: TYPE OF FLUID PLEURAL
[2017-01-11 17:29] LABS: BODY FLUID LDH 73 IU/L; BODY FLUID PROTEIN < 3 G/DL
[2017-01-11 17:38] LABS: BODY FLUID EOSINOPHILS 0 % (0-25); BODY FLUID RBC'S 12000 /MM^3 (0-100); BODY FLUID WBC'S 954 /MM^3 (0-500); COMMENT MANY MACROPHAGES AND MESOTHELIAL CELLS SEEN; MONONUCLEAR WBC'S 88 %; POLYNUCLEAR WBC'S 12 % (0-25)
[2017-01-11 23:54] VITALS: BP 107/70
[2017-01-12 08:04] VITALS: BP 140/75
[2017-01-12 10:15] LABS: MCH 29.1 PG (29.0-34.0); MCHC 31.9 G/DL (30.0-36.0); MCV 91.3 FL (86-99); MEAN PLAT.VOLUME 10.8 uM^3 (9.0-12.4); PLATELET COUNT 172 K/uL (156-360); RBC DIS.WIDTH-SD 50.5 % (39-53); RED BLOOD COUNT 4.71 M/uL (4.00-5.50); WHITE BLOOD COUNT 5.7 K/uL (4.1-10.2)
[2017-01-12 10:38] LABS: ANION GAP 11 MEQ/L (2-14); CHLORIDE 104 MEQ/L (99-109); GFR ESTIMATE (CALCULATED) > 59 mL/min/; GLUCOSE 122 mg/dL (70-99); POTASSIUM 4.2 MEQ/L (3.7-5.4); SAMPLE HEMOLYSIS CHECK 0; SAMPLE ICTERIC CHECK 0; SAMPLE LIPEMIA CHECK 0; SODIUM 139 MEQ/L (136-147); UREA NITROGEN (BUN) 13 mg/dL (9-23)
[2017-01-12 10:48] LABS: EOSINOPHIL (%) 0 % (0-5); IMMATURE GRANULOCYTE (%) 0.5 % (0.0-0.7); INSTRUMENT ABS NEUTROPHIL CT 3.6 K/uL; LYMPHOCYTE COUNT 1.7 K/uL (1.0-2.8); MONOCYTE (%) 5.5 % (3-12); MONOCYTE COUNT 0.3 K/uL (0-0.8); NEUTROPHIL (%) 63.5 % (45-76); NEUTROPHIL COUNT 3.6 K/uL (1.8-6.4)
[2017-01-12 16:00] VITALS: BP 140/86
[2017-01-12 23:24] VITALS: BP 107/62
[2017-01-13 08:08] VITALS: BP 121/87
[2017-01-13 15:09] VITALS: BP 121/77
[2017-01-14 00:34] VITALS: BP 135/74
[2017-01-14 07:23] LABS: EOSINOPHIL (%) 0 % (0-5); HEMATOCRIT 41.8 % (38.0-50.0); IMMATURE GRANULOCYTE (%) 0.3 % (0.0-0.7); INSTRUMENT ABS NEUTROPHIL CT 4.3 K/uL; LYMPHOCYTE COUNT 2.1 K/uL (1.0-2.8); MCH 29.1 PG (29.0-34.0); MCHC 32.3 G/DL (30.0-36.0); MCV 90.1 FL (86-99); MEAN PLAT.VOLUME 10.9 uM^3 (9.0-12.4); MONOCYTE (%) 5.3 % (3-12); MONOCYTE COUNT 0.4 K/uL (0-0.8); NEUTROPHIL (%) 63.2 % (45-76); NEUTROPHIL COUNT 4.3 K/uL (1.8-6.4); PLATELET COUNT 195 K/uL (156-360); RBC DIS.WIDTH-CV 15.2 % (11.8-14.6); RBC DIS.WIDTH-SD 49.6 % (39-53); RED BLOOD COUNT 4.64 M/uL (4.00-5.50); WHITE BLOOD COUNT 6.7 K/uL (4.1-10.2)
[2017-01-14 07:48] LABS: ANION GAP 9 MEQ/L (2-14); CHLORIDE 106 MEQ/L (99-109); GFR ESTIMATE (CALCULATED) > 59 mL/min/; GLUCOSE 113 mg/dL (70-99); POTASSIUM 4.5 MEQ/L (3.7-5.4); SAMPLE HEMOLYSIS CHECK 0; SAMPLE ICTERIC CHECK 0; SAMPLE LIPEMIA CHECK 0; SODIUM 140 MEQ/L (136-147); UREA NITROGEN (BUN) 15 mg/dL (9-23)
[2017-01-14 07:58] VITALS: BP 129/95
[2017-01-14 16:42] VITALS: BP 153/79
[2017-01-14 23:31] VITALS: BP 107/61
[2017-01-15 07:34] VITALS: BP 143/82
[2017-01-15 23:38] VITALS: BP 104/59
[2017-01-16 07:15] LABS: BASOPHIL COUNT 0.1 K/uL (0-0.1); EOSINOPHIL (%) 0.2 % (0-5); HEMATOCRIT 39.7 % (38.0-50.0); IMMATURE GRANULOCYTE (%) 0.4 % (0.0-0.7); LYMPHOCYTE COUNT 4.7 K/uL (1.0-2.8); MCHC 31.2 G/DL (30.0-36.0); MCV 89.6 FL (86-99); MEAN PLAT.VOLUME 10.6 uM^3 (9.0-12.4); MONOCYTE COUNT 0.7 K/uL (0-0.8); NEUTROPHIL (%) 42.5 % (45-76); PLATELET COUNT 187 K/uL (156-360); RBC DIS.WIDTH-SD 49.6 % (39-53); RED BLOOD COUNT 4.43 M/uL (4.00-5.50); WHITE BLOOD COUNT 9.5 K/uL (4.1-10.2)
[2017-01-16 07:20] VITALS: BP 134/72
[2017-01-16 07:47] LABS: ANION GAP 10 MEQ/L (2-14); CHLORIDE 107 MEQ/L (99-109); GFR ESTIMATE (CALCULATED) > 59 mL/min/; GLUCOSE 86 mg/dL (70-99); SAMPLE HEMOLYSIS CHECK 0; SAMPLE ICTERIC CHECK 0; SAMPLE LIPEMIA CHECK 0; SODIUM 141 MEQ/L (136-147); UREA NITROGEN (BUN) 13 mg/dL (9-23)
[2017-01-16 15:34] VITALS: BP 125/67
[2017-01-16 23:30] VITALS: BP 97/57
[2017-01-17 07:54] VITALS: BP 116/62
[2017-01-17 17:30] VITALS: BP 124/60
[2017-01-17 23:22] VITALS: BP 109/60
[2017-01-18 07:39] VITALS: BP 109/59
[2017-01-18 15:25] VITALS: BP 120/86
[2017-01-18 23:57] VITALS: BP 129/81
[2017-01-19 07:30] LABS: HEMATOCRIT 36.1 % (38.0-50.0); MCH 28.3 PG (29.0-34.0); MCHC 31.3 G/DL (30.0-36.0); MCV 90.3 FL (86-99); MEAN PLAT.VOLUME 10.8 uM^3 (9.0-12.4); PLATELET COUNT 171 K/uL (156-360); RBC DIS.WIDTH-CV 15.3 % (11.8-14.6); RBC DIS.WIDTH-SD 50.6 % (39-53)
[2017-01-19 07:59] LABS: ANION GAP 9 MEQ/L (2-14); CHLORIDE 105 MEQ/L (99-109); GFR ESTIMATE (CALCULATED) > 59 mL/min/; GLUCOSE 91 mg/dL (70-99); POTASSIUM 4.3 MEQ/L (3.7-5.4); SAMPLE HEMOLYSIS CHECK 0; SAMPLE ICTERIC CHECK 0; SAMPLE LIPEMIA CHECK 0; SODIUM 138 MEQ/L (136-147); UREA NITROGEN (BUN) 12 mg/dL (9-23)
[2017-01-19 08:08] LABS: ABS NEUTROPHIL COUNT 4.1; ANISOCYTOSIS 1+; ATYPICAL LYMPHOCYTE 3.6 %; BASOPHILS 0.9 %; EOSINOPHIL ABS CT 0; INSTRUMENT ABS NEUTROPHIL CT 4.2 K/uL; LYMPHOCYTES 41.4 % (15.0-45.0); MACROCYTES 1+; OVALOCYTES 1+; PLAT.SUFFICIENCY ADEQUATE; POIKILOCYTOSIS 1+; SEG.NEUTROPHILS 45.1 % (46.0-76.0)
[2017-01-19 08:24] VITALS: BP 125/78
[2017-01-19 08:28] VITALS: BP 146/76
[2017-01-19] MEDS ORDERED: SPIRIVA RESPIMAT4 GM IH (13:06)
[2017-01-19] MEDS ORDERED: NICOTINE PATCH1 EAC2 TD (13:06)
[2017-01-19] MEDS ORDERED: AMLODIPINE BESY10 MG PO (13:07)
[2017-01-19] MEDS ORDERED: LOVENOX40 MG/0.4 SC (13:07)
[2017-01-19] MEDS ORDERED: DIVALPROEX SOD125 MG PO (13:08)
[2017-01-19] MEDS ORDERED: TRAZODONE HCL50 MG PO (13:10)
[2017-01-19] MEDS ORDERED: QUETIAPINE FUMA25 MG PO (13:10)
[2017-01-19] MEDS ORDERED: CARBIDOPA/LEVO1 EACH PO (13:10)
[2017-01-19] MEDS ORDERED: ATIVAN0.5 MG PO (13:12)
== END 2017-01-19 15:07 | DRG 178 ==
LOC: EME → EDBD 23:03 → EDOF 01-07 03:40 → 3EAST 01-07 03:40 → ENRESERV 01-07 03:51 → 3EAST 01-07 06:10
PROVIDERS: Emergency Medicine; Family Medicine; Internal Medicine Pulmonary Disease
PROC: 0W9B3ZX Drainage of Left Pleural Cavity, Percutaneous Approach, Diagnostic (ICD-10-PCS; principal; 2017-01-11)
DX: J69.0 Pneumonitis due to inhalation of food and vomit (principal); J90 Pleural effusion, not elsewhere classified; F01.51 Vascular dementia, unspecified severity, with behavioral disturbance; R64 Cachexia; F02.81 Dementia in other diseases classified elsewhere, unspecified severity, with behavioral disturbance; F05 Delirium due to known physiological condition; S42.291K Other displaced fracture of upper end of right humerus, subsequent encounter for fracture with nonunion; W18.30XA Fall on same level, unspecified, initial encounter; J44.9 Chronic obstructive pulmonary disease, unspecified; M80.88XA Other osteoporosis with current pathological fracture, vertebra(e), initial encounter for fracture; J98.11 Atelectasis; F33.9 Major depressive disorder, recurrent, unspecified; I73.9 Peripheral vascular disease, unspecified; K21.9 Gastro-esophageal reflux disease without esophagitis; S42.031A Displaced fracture of lateral end of right clavicle, initial encounter for closed fracture; R09.02 Hypoxemia; R29.6 Repeated falls; I48.2 Chronic atrial fibrillation; G47.33 Obstructive sleep apnea (adult) (pediatric); D64.9 Anemia, unspecified; E78.5 Hyperlipidemia, unspecified; F17.210 Nicotine dependence, cigarettes, uncomplicated; F60.0 Paranoid personality disorder; F22 Delusional disorders; F41.9 Anxiety disorder, unspecified; G20 Parkinson's disease; G30.9 Alzheimer's disease, unspecified; I10 Essential (primary) hypertension; I25.10 Atherosclerotic heart disease of native coronary artery without angina pectoris; Z78.1 Physical restraint status; Z85.118 Personal history of other malignant neoplasm of bronchus and lung; Z85.46 Personal history of malignant neoplasm of prostate; Z86.73 Personal history of transient ischemic attack (TIA), and cerebral infarction without residual deficits; Z87.442 Personal history of urinary calculi; Z95.1 Presence of aortocoronary bypass graft; Z95.5 Presence of coronary angioplasty implant and graft; Z96.643 Presence of artificial hip joint, bilateral; Z99.81 Dependence on supplemental oxygen; Z88.5 Allergy status to narcotic agent; Y92.129 Unspecified place in nursing home as the place of occurrence of the external cause; M85.88 Other specified disorders of bone density and structure, other site; K59.00 Constipation, unspecified; Z23 Encounter for immunization; R45.1 Restlessness and agitation; Z68.22 Body mass index [BMI] 22.0-22.9, adult
CPT/HCPCS: 70450; 71010; 71275; 72125; 73000; 73030; 74230; 76942; 80048; 82945; 83605; 83615 91; 83880; 84157; 84484; 85025; 85027; 85379; 85610; 85730; 86850; 86900; 86901; 87040; 87070; 87075; 87205; 87641; 88108; 88305; 89051; 90686; 92526 GN; 92610 GN; 92611 GN; 93005; 94640 76; 94760; 94799; 97530 GO; 97530 GP; 99281; 99285; J0696; J1170; J1650; J2060; J2543; J3486; J7030; J7050; J8540